=== PATIENT | male | born 1975 | race Caucasian/White ===

== ENCOUNTER 2017-09-06 04:17 | Emergency (ER) | payer SELFPAY ==
[2017-09-06] MEDS ORDERED: Tetan/Diph/Pertus SYR(Tdap)* 0.5 ML SYR(BOOSTRIX) use SYR IM ONE (06:09)
--- NOTE | 2017-09-06 06:31 | ED ---
Laceration/Wound HPI - HPI Summary HPI Summary: Patient is a 41-year-old male presenting to the ED with a right palmar laceration from a utility razor from work approximately 1 hour prior to arrival. 5 cm laceration. He endorses moderate amount of bleeding. Denies any pain. Denies any numbness or tingling in the fingertips. Denies E pain in the wrist area there is no swelling or ecchymosis around the palm of the hand. He has otherwise healthy, denies taking blood thinners. - History of Current Complaint Stated Complaint: RIGHT HAND LAC Time Seen by Provider: 09/06/17 05:32 Hx Obtained From: Patient Mechanism of Injury: Sharp/Blunt Trauma Onset/Duration: Sudden Onset Aggravating: Movement Alleviating: Compression Timing: Constant Onset Severity: Mild Current Severity: Mild Pain Intensity: 3 Pain Scale Used: 0-10 Numeric Associated Signs & Symptoms: Negative Related Hx: Occupational Injury, Dominant Hand (Right) - Allergy/Home Medications Allergies/Adverse Reactions: Allergies Allergy/AdvReac Type Severity Reaction Status Date / Time Unable to Assess Allergy Verified 09/06/17 04:28 Home Medications: Home Medications NK [No Home Medications Reported] 09/06/17 [History Confirmed 09/06/17] PMH/Surg Hx/FS Hx/Imm Hx Previously Healthy: Yes - Immunization History Hx Pertussis Vaccination: No Immunizations Up to Date: Unable to Obtain/Confirm Infectious Disease History: No Infectious Disease History: Denies: Traveled Outside the [place] in Last 30 Days - Social History Occupation: Employed Full-time Lives: With Family Alcohol Use: Weekly Hx Substance Use: No Substance Use Type: Reports: None Hx Tobacco Use: Yes Smoking Status (MU): Former Smoker Review of Systems Constitutional: Negative Negative: Fever, Chills, Fatigue, Skin Diaphoresis Negative: Epistaxis, Dental Pain, Sore Throat Negative: Palpitations, Chest Pain Negative: Shortness Of Breath, Cough Genitourinary: Negative Positive: no symptoms reported, see HPI Musculoskeletal: Negative Psychological: Normal All Other Systems Reviewed And Are Negative: Yes Physical Exam Triage Information Reviewed: Yes Vital Signs On Initial Exam: Initial Vitals Temp Pulse Resp BP Pulse Ox 97.9 F 95 16 165/90 100 09/06/17 04:19 09/06/17 04:19 09/06/17 04:19 09/06/17 04:19 09/06/17 04:19 Vital Signs Reviewed: Yes Appearance: Positive: Well-Appearing, Well-Nourished Skin: Positive: Warm, Skin Color Reflects Adequate Perfusion, Other - 5cm laceration to the palmar hand right Head/Face: Positive: Normal Head/Face Inspection Eyes: Positive: EOMI, ROCÍO, Conjunctiva Clear Neck: Positive: Supple Respiratory/Lung Sounds: Positive: Clear to Auscultation, Breath Sounds Present Cardiovascular: Positive: RRR, Pulses are Symmetrical in both Upper and Lower Extremities Musculoskeletal: Positive: Normal, Strength/ROM Intact Neurological: Positive: Speech Normal Psychiatric: Positive: Normal, Affect/Mood Appropriate Procedures - Laceration/Wound Repair 1 Location: upper extremity Description: Linear Anesthesia: Local, 1.0%, Epi Betadine Prep?: No Irrigated w/ Saline (ccs): 60 Laceration/Wound Explored: clean Debridement: moderate Suture Type: Prolene Number of Sutures: 9 Layer Closure?: No Sterile Dressing Applied?: Yes Diagnostics - Vital Signs Vital Signs Temp Pulse Resp BP Pulse Ox 09/06/17 04:19 97.9 F 95 16 165/90 100 - Laboratory Lab Statement: Any lab studies that have been ordered have been reviewed, and results considered in the medical decision making process. Laceration Repair Course/Dx - Course Course Of Treatment: Cleansed wound thoroughly with 60 cc normal saline. Lidocaine without epi initially used with good effect. 7 sutures placed. After sutures were placed, the palmar area continues to bleed. Lidocaine with epi then used to help control the bleeding. 2 more sutures placed. 4-0 Non- absorbable prolene. 5 sutures placed using simple interrupted. technique. Cleaned and dressed wound with telfa dressing and Coban and. Tetanus updated. Recheck to the wound after 20 minutes and bleeding has ceased. Wrapped the wound in gauze with Telfa. NV exam WNL. Sutures out in 7 days. Return. precautions given. Patient OK with discharge - Clinical Impression Provider Diagnoses: Laceration Discharge - Sign-Out/Discharge Documenting (check all that apply): Discharge - Discharge Plan Condition: Stable Disposition: HOME Patient Education Materials: Care For Your Stitches (ED), Laceration (ED) Referrals: No Primary Care Phys,NOPCP [Primary Care Provider] - Additional Instructions: Keep the area bandaged x 1 day Leave open to air Compression dressing to the area x 4-5 hours. Tetanus is updated Keep the area covered in a dirty environment - Billing Disposition and Condition Condition: STABLE Disposition: HOME Images - Images Hands: 1 - 5 cm laceration
[2017-09-06 07:12] VITALS: BP 143/76
== END 2017-09-06 07:10 | disposition home or self-care (01) ==
LOC: ED 04:17
DX: S61.411A Laceration without foreign body of right hand, initial encounter (principal); W26.8XXA Contact with other sharp object(s), not elsewhere classified, initial encounter; Y93.89 Activity, other specified; Y92.9 Unspecified place or not applicable; Y99.0 Civilian activity done for income or pay; Z23 Encounter for immunization; Z87.891 Personal history of nicotine dependence
CPT/HCPCS: 12002; 90471; 90715; 99282